=== PATIENT | female | born 1935 | race Caucasian/White ===

== ENCOUNTER 2019-04-11 20:43 | Emergency (ER) | payer MEDICARE, OTHER ==
[~2019-04-11] VITALS: Ht 162.6 cm; Wt 51.7 kg
[~2019-04-11 20:43] MED LIST: ALPR0.5T6 PO; ASPI-630 PO; BISO5TAB4 PO; CARV25TA2 PO; CILO50TA PO; CILO50TA10 PO; CLON1PAT10 TD; CLOP75TA PO; CRESTOR5 MG PO; CYAN10002 IJ; ERGO500027 PO; EZET10TA20 PO; FERR325T14 PO; GABA300C18 PO; HYDR-2869 PO; LINA5TAB PO; OMEP20TA8 PO; OMEP40CA45 PO; TELM40TA PO; TELM80TA PO; TRAM50TA PO; VITA1TAB31 PO; ZOLP10TA4 PO; ZOLP12.52 PO
--- NOTE | 2019-04-11 22:01 | PHYS DOC ---
Past Medical History Past Medical History: Diabetes-Type II, Other Additional Past Medical Histor: stage 4 renal dz, pacemaker Past Surgical History: Appendectomy, Hysterectomy Alcohol Use: None Drug Use: None Adult General Chief Complaint Chief Complaint: MECHANICAL FALL HPI HPI 84-year-old female [place] to the emergency department [place]. Patient was being pushed on her wheelchair and got caught on she subsequently fell backwards hitting her head, unknown loss of consciousness. She is on aspirin 81 mg daily. This happened approximately 8:30 PM. Patient describes headache, neck pain with midline tenderness, thoracic with midline tenderness. She denies any numbness or tingling in her extremities. Review of Systems Review of Systems Constitutional: Denies fever or chills [] Eyes: Denies change in visual acuity, redness, or eye pain [] HENT: Denies nasal congestion or sore throat [] Respiratory: Denies cough or shortness of breath [] Cardiovascular: No additional information not addressed in HPI [] GI: Denies abdominal pain, nausea, vomiting, bloody stools or diarrhea [] : Denies dysuria or hematuria [] Musculoskeletal: neck pain, thoracic midline tenderness Integument: Denies rash or skin lesions [] Neurologic: headache All other systems were reviewed and found to be within normal limits, except as documented in this note. Current Medications Current Medications Current Medications Medications (Trade) Dose Ordered Sig/Rohan Start Time Stop Time Status Last Admin Dose Admin Acetaminophen (Tylenol) 1,000 mg 1X ONCE 04/11/19 22:30 04/11/19 22:31 DC 04/11/19 22:23 1,000 MG Allergies Allergies Allergies Coded Allergies Type Severity Reaction Last Updated Verified codeine Allergy Intermediate Rash 06/24/16 Yes Physical Exam Physical Exam Constitutional: Well developed, well nourished, no acute distress, non-toxic appearance. [] HENT: Normocephalic, atraumatic, bilateral external ears normal, oropharynx moist, no oral exudates, nose normal. [] Eyes: PERRLA, EOMI, conjunctiva normal, no discharge. [] Neck: c-collar in place, midline tenderness Cardiovascular:Heart rate regular rhythm, no murmur [] Lungs & Thorax: Bilateral breath sounds clear to auscultation [] Abdomen: Bowel sounds normal, soft, no tenderness, no masses, no pulsatile masses. [] Skin: Warm, dry, no erythema, no rash. [] Back: No tenderness, no CVA tenderness. [] Extremities: No tenderness, no edema. [] Neurologic: Alert and oriented X 3, no focal deficits noted. [] Psychologic: Affect normal, judgement normal, mood normal. [] Current Patient Data Vital Signs Vital Signs Date Time Temp Pulse Resp B/P (MAP) Pulse Ox O2 Delivery O2 Flow Rate FiO2 04/11/19 23:00 70 18 92 04/11/19 20:46 97.7 212/89 (130) Room Air 97.7 EKG EKG [] Radiology/Procedures Radiology/Procedures [facility] [address] [place], [place] [id number] IMAGING REPORT Signed PATIENT: IONA LE ACCOUNT: [id number] : 1935 LOCATION: ER AGE: 84 SEX: F EXAM STATUS: REG ER ORD. PHYSICIAN: SHANE LEWIS MD REASON: Fall out of wheelchair backwards, unknown LOC, neck thoracic midline tender PROCEDURE: CT THORACIC SPINE WO CONTRAST CT head without contrast. CT cervical spine without contrast. CT thoracic spine without contrast. HISTORY: Fall, syncope, neck pain, thoracic midline back pain. TECHNIQUE: Noncontrast imaging of the head, cervical spine and thoracic spine multiplanar reconstructions. 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 Mild generalized brain atrophy. No intracranial hemorrhage, mass, hydrocephalus or acute infarction. 1 cm in thickness frontal scalp hematoma the vertex. Orbits, mastoids and bones are unremarkable. IMPRESSION: No acute intracranial CT abnormality. Parietal scalp hematoma. No skull fracture. CT cervical spine findings: Arthritic change C1-C2 articulation and atlantodental joint capsule thickening. Craniocervical junction intact. Small chronic ossicle above the C1 anterior arch. Cervical vertebral body height and alignment intact. ACDF at C5-C6. No fracture of the cervical spine. Multilevel cervical uncovertebral and facet spurring with and neural foraminal stenoses. Paraspinal tissues unremarkable. IMPRESSION: No acute osseous injury of the cervical spine. CT thoracic spine findings: Chronic very mild vertebral endplate compression deformities of the T12 thoracic and L1 lumbar vertebra without a lucent fracture cleft, suggesting chronic injuries. Remainder of the thoracic spine demonstrates intact vertebral height and alignment. No acute fracture evident. No spondylolysis defect. There is a small right lower lobe superior segment cystic lesion or cavitation with an adjacent irregular 7 mm nodule image 53. Multilevel thoracic disc height loss likely due to disc degeneration. IMPRESSION: 1. No acute osseous injury of the thoracic spine. Mild chronic compression deformities of the T12 thoracic and L1 lumbar vertebra. 2. 7 mm irregular pulmonary nodule of the right lower lobe raising the possibility of an early bronchogenic carcinoma. Exposure: One or more of the following individualized dose reduction techniques were utilized for this examination: 1. Automated exposure control 2. Adjustment of the mA and/or kV according to patient size 3. Use of iterative reconstruction technique Electronically signed by: Aida Chris MD (04/11/2019 11:15 PM) [facility] DICTATED and SIGNED BY: AIDA CHRIS MD DATE: 04/11/197 [] Course & Med Decision Making Course & Med Decision Making Pertinent Labs and Imaging studies reviewed. (See chart for details) []84-year-old female presents to the emergency department after a fall at the [employer]. Patient was being pushed on her wheelchair and got caught on she subsequently fell backwards hitting her head, unknown loss of consciousness. She is on aspirin 81 mg daily. This happened approximately 8:30 PM. Patient describes headache, neck pain with midline tenderness, thoracic with midline tenderness. She denies any numbness or tingling in her extremities. CT of head, neck, thoracic spine reviewed. No evidence of acute intracranial process. Patient does have some chronic compression fracture appreciated of she is aware. Plan discharge home recommend follow up primary care physician as an outpatient in next 3-5 days. Tylenol, Motrin as needed. Dragon Disclaimer Dragon Disclaimer This electronic medical record was generated, in whole or in part, using a voice recognition dictation system. Departure Departure Impression: Primary Impression: Fall Additional Impressions: Neck pain Back pain Disposition: 01 HOME, SELF-CARE Condition: STABLE Referrals: FANNIE MCLEAN (PCP) Patient Instructions: Contusion, [id number], Fall Prevention and Home Safety, [id number] Additional Instructions: Recommend follow up with PCP 3 - 5 days Return to the ER with worsening symptoms, intractable pain, fever, altered mental status Tylenol/Motrin as needed for pain Problem Qualifiers Primary Impression: Fall Encounter type: initial encounter Qualified Codes: W19.XXXA - Unspecified fall, initial encounter SHANE LEWIS MD Apr 11, 2019 22:01
[2019-04-11] MEDS ORDERED: ACETAMINOPHEN 500 MG TABLET PO ONE (22:30)
--- NOTE | 2019-04-11 23:19 | RAD ---
CT head without contrast. CT cervical spine without contrast. CT thoracic spine without contrast. HISTORY: Fall, syncope, neck pain, thoracic midline back pain. TECHNIQUE: Noncontrast imaging of the head, cervical spine and thoracic spine multiplanar reconstructions. 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 Mild generalized brain atrophy. No intracranial hemorrhage, mass, hydrocephalus or acute infarction. 1 cm in thickness frontal scalp hematoma the vertex. Orbits, mastoids and bones are unremarkable. IMPRESSION: No acute intracranial CT abnormality. Parietal scalp hematoma. No skull fracture. CT cervical spine findings: Arthritic change C1-C2 articulation and atlantodental joint capsule thickening. Craniocervical junction intact. Small chronic ossicle above the C1 anterior arch. Cervical vertebral body height and alignment intact. ACDF at C5-C6. No fracture of the cervical spine. Multilevel cervical uncovertebral and facet spurring with and neural foraminal stenoses. Paraspinal tissues unremarkable. IMPRESSION: No acute osseous injury of the cervical spine. CT thoracic spine findings: Chronic very mild vertebral endplate compression deformities of the T12 thoracic and L1 lumbar vertebra without a lucent fracture cleft, suggesting chronic injuries. Remainder of the thoracic spine demonstrates intact vertebral height and alignment. No acute fracture evident. No spondylolysis defect. There is a small right lower lobe superior segment cystic lesion or cavitation with an adjacent irregular 7 mm nodule image 53. Multilevel thoracic disc height loss likely due to disc degeneration. IMPRESSION: 1. No acute osseous injury of the thoracic spine. Mild chronic compression deformities of the T12 thoracic and L1 lumbar vertebra. 2. 7 mm irregular pulmonary nodule of the right lower lobe raising the possibility of an early bronchogenic carcinoma. Exposure: One or more of the following individualized dose reduction techniques were utilized for this examination: 1. Automated exposure control 2. Adjustment of the mA and/or kV according to patient size 3. Use of iterative reconstruction technique Electronically signed by: Suresh Chris MD (04/11/2019 11:15 PM) [facility]
[2019-04-11 23:45] VITALS: BP 190/78
== END 2019-04-11 23:49 | disposition home or self-care (01) ==
LOC: ER 20:43
DX: M54.2 Cervicalgia (principal); R51 Headache; M54.6 Pain in thoracic spine; E11.9 Type 2 diabetes mellitus without complications; Z90.89 Acquired absence of other organs; Z90.710 Acquired absence of both cervix and uterus; Z95.0 Presence of cardiac pacemaker; Z88.5 Allergy status to narcotic agent; W18.39XA Other fall on same level, initial encounter; Y93.89 Activity, other specified; Y92.89 Other specified places as the place of occurrence of the external cause; Y99.8 Other external cause status
CPT/HCPCS: 70450; 72125; 72128; 99284